=== PATIENT | male | born 1975 | race African-American/Black ===

== ENCOUNTER 2017-02-17 12:59 | Emergency (ER) | payer BC, OTHER ==
[~2017-02-17 12:59] MED LIST: AMOXICILLIN500 M1 PO; FLEXERIL10 M1 PO; FLEXERIL10 MG PO; LORTAB 5/500 TA1 TA1 PO; ORUDIS75 M1 PO; PREVACID PO; SKELAXIN PO; VOLTAREN5 ML PO
== END 2017-02-17 13:44 | disposition home or self-care (01) ==
LOC: CFTX 12:59
DX: M54.5 Low back pain (principal); K08.89 Other specified disorders of teeth and supporting structures; F17.210 Nicotine dependence, cigarettes, uncomplicated
CPT/HCPCS: 99282